=== PATIENT | male | born 1975 | race Caucasian/White ===

== ENCOUNTER 2020-05-07 17:35 | Inpatient (IN) | payer OTHER ==
[2020-05-07 19:29] VITALS: BMI 29.2
[2020-05-07] MEDS ORDERED: P-EPHED 60MG/TRIPROLIDI 2.5MG TABLET PO PRN (21:28)
[2020-05-07] MEDS ORDERED: IBUPROFEN 400 MG TABLET (FP) PO PRN (21:28)
[2020-05-07] MEDS ORDERED: hydrOXYzine PAMOATE 25 MG CAPSULE (FP) PO PRN (21:28)
[2020-05-07] MEDS ORDERED: LOPERAMIDE HCL 2 MG CAPSULE PO PRN (21:28)
[2020-05-07] MEDS ORDERED: MAGNESIUM HYDROX 2400MG/30ML ORAL SUSPENSION 30 ML CUP PO PRN (21:28)
[2020-05-07] MEDS ORDERED: MAG HYDROX/AL HYDROX/SIMETH 30 ML UNIT-DOSE CUP PO PRN (21:28)
[2020-05-07] MEDS ORDERED: ACETAMINOPHEN 325 MG TABLET (FP) PO PRN (21:28)
[2020-05-07] MEDS ORDERED: MAGNESIUM CITRATE 300 ML BOTTLE PO PRN (21:28)
[2020-05-07] MEDS ORDERED: guaiFENesin 200 MG/10 ML 10 ML UNIT-DOSE CUPS PO PRN (21:28)
[2020-05-08] MEDS: THIAMINE HCL 100 MG TABLET (FP) PO SCH ×2 (01:52→21:17)
[2020-05-08] MEDS: MELATONIN 5 MG TABLETS PO SCH ×2 (01:52→21:17)
[2020-05-08] MEDS: HYDROCHLOROTHIAZIDE 25 MG TABLET (FP) PO SCH (09:59)
[2020-05-08] MEDS: PRENATAL VITAMINS W/ FOLIC ACID TABLET (FP) PO SCH (09:59)
[2020-05-08] MEDS: ESCITALOPRAM OXALATE 10 MG TABLET PO SCH (09:59)
[2020-05-08 11:55] LABS: HEMATOCRIT 41.3 % (35.4-49); HEMOGLOBIN 14.2 GM/dL (11.7-16.9); MCH 33.1 pg (25.7-33.7); MCHC 34.4 g/dl (32.0-35.9); MEAN CELL VOLUME 96.2 fl (80-96); MEAN PLT VOLUME 8.7 fl (7.5-11.1); PLATELET COUNT 294 K/MM3 (134-434); RBC 4.29 M/mm3 (4.00-5.60); RDW 13.3 % (11.9-15.9); WHITE BLOOD COUNT 6.3 K/mm3 (4.0-10.0)
[2020-05-08 12:20] LABS: BLOOD UREA NITROGEN 15.4 mg/dL (7-18)
[2020-05-08 12:24] LABS: CALCIUM 9.3 mg/dL (8.5-10.1); CREATININE 0.9 mg/dL (0.55-1.3)
[2020-05-08 12:25] LABS: ALBUMIN 3.4 g/dl (3.4-5.0); BILIRUBIN,TOTAL 0.3 mg/dL (0.2-1); TOT PROT 7.6 g/dl (6.4-8.2)
[2020-05-08 16:21] LABS: URINE APPEARANCE CLEAR; URINE BILIRUBIN NEGATIVE (NEGATIVE); URINE COLOR YELLOW; URINE GLUCOSE (UA) NEGATIVE (NEGATIVE); URINE KETONE TRACE (NEGATIVE); URINE LEUK ESTERASE NEGATIVE (NEGATIVE); URINE NITRITE NEGATIVE (NEGATIVE); URINE PROTEIN NEGATIVE (NEGATIVE); URINE UROBILINOGEN 0.2 mg/dL (0.2-1.0)
[2020-05-08] MEDS: ATORVASTATIN CA 20 MG TABLET (FP) PO SCH (21:17)
[2020-05-08] MEDS: risperiDONE 2 MG TABLET PO SCH (21:17)
[2020-05-09] MEDS: ESCITALOPRAM OXALATE 10 MG TABLET PO SCH (10:08)
[2020-05-09] MEDS: HYDROCHLOROTHIAZIDE 25 MG TABLET (FP) PO SCH (10:08)
[2020-05-09] MEDS: PRENATAL VITAMINS W/ FOLIC ACID TABLET (FP) PO SCH (10:08)
[2020-05-09] MEDS: THIAMINE HCL 100 MG TABLET (FP) PO SCH (21:18)
[2020-05-09] MEDS: ATORVASTATIN CA 20 MG TABLET (FP) PO SCH (21:18)
[2020-05-09] MEDS: risperiDONE 2 MG TABLET PO SCH (21:18)
[2020-05-09] MEDS: MELATONIN 5 MG TABLETS PO SCH (21:18)
[2020-05-10] MEDS: PRENATAL VITAMINS W/ FOLIC ACID TABLET (FP) PO SCH (10:08)
[2020-05-10] MEDS: HYDROCHLOROTHIAZIDE 25 MG TABLET (FP) PO SCH (10:08)
[2020-05-10] MEDS: ESCITALOPRAM OXALATE 10 MG TABLET PO SCH (10:08)
[2020-05-10] MEDS ORDERED: PT OWN MED DRAWER 7, Y5N ONE ×2 (19:32→22:55)
[2020-05-10] MEDS: MELATONIN 5 MG TABLETS PO SCH (21:21)
[2020-05-10] MEDS: THIAMINE HCL 100 MG TABLET (FP) PO SCH (21:21)
[2020-05-10] MEDS: risperiDONE 2 MG TABLET PO SCH (21:22)
[2020-05-10] MEDS: ATORVASTATIN CA 20 MG TABLET (FP) PO SCH (21:22)
[2020-05-11] MEDS: PRENATAL VITAMINS W/ FOLIC ACID TABLET (FP) PO SCH (09:55)
[2020-05-11] MEDS: HYDROCHLOROTHIAZIDE 25 MG TABLET (FP) PO SCH (09:55)
[2020-05-11] MEDS: ESCITALOPRAM OXALATE 10 MG TABLET PO SCH (09:55)
[2020-05-11] MEDS: risperiDONE 2 MG TABLET PO SCH (21:19)
[2020-05-11] MEDS: THIAMINE HCL 100 MG TABLET (FP) PO SCH (21:19)
[2020-05-11] MEDS: ATORVASTATIN CA 20 MG TABLET (FP) PO SCH (21:19)
[2020-05-11] MEDS: MELATONIN 5 MG TABLETS PO SCH (21:19)
[2020-05-12] MEDS: ESCITALOPRAM OXALATE 10 MG TABLET PO SCH (10:03)
[2020-05-12] MEDS: HYDROCHLOROTHIAZIDE 25 MG TABLET (FP) PO SCH (10:03)
[2020-05-12] MEDS: PRENATAL VITAMINS W/ FOLIC ACID TABLET (FP) PO SCH (10:04)
[2020-05-12] MEDS: MELATONIN 5 MG TABLETS PO SCH (21:03)
[2020-05-12] MEDS: risperiDONE 2 MG TABLET PO SCH (21:03)
[2020-05-12] MEDS: ATORVASTATIN CA 20 MG TABLET (FP) PO SCH (21:03)
[2020-05-12] MEDS: THIAMINE HCL 100 MG TABLET (FP) PO SCH (21:03)
[2020-05-13] MEDS: HYDROCHLOROTHIAZIDE 25 MG TABLET (FP) PO SCH (09:58)
[2020-05-13] MEDS: PRENATAL VITAMINS W/ FOLIC ACID TABLET (FP) PO SCH (09:58)
[2020-05-13] MEDS: ESCITALOPRAM OXALATE 10 MG TABLET PO SCH (09:58)
[2020-05-13] MEDS: THIAMINE HCL 100 MG TABLET (FP) PO SCH (21:19)
[2020-05-13] MEDS: risperiDONE 2 MG TABLET PO SCH (21:19)
[2020-05-13] MEDS: MELATONIN 5 MG TABLETS PO SCH (21:19)
[2020-05-13] MEDS: ATORVASTATIN CA 20 MG TABLET (FP) PO SCH (21:19)
[2020-05-14] MEDS: PRENATAL VITAMINS W/ FOLIC ACID TABLET (FP) PO SCH (10:37)
[2020-05-14] MEDS: ESCITALOPRAM OXALATE 10 MG TABLET PO SCH (10:37)
[2020-05-14] MEDS: HYDROCHLOROTHIAZIDE 25 MG TABLET (FP) PO SCH (10:37)
[2020-05-14] MEDS ORDERED: PT OWN MED DRAWER 7, Y5N ONE (15:34)
[2020-05-14] MEDS: ATORVASTATIN CA 20 MG TABLET (FP) PO SCH (21:13)
[2020-05-14] MEDS: risperiDONE 2 MG TABLET PO SCH (21:13)
[2020-05-14] MEDS: MELATONIN 5 MG TABLETS PO SCH (21:13)
[2020-05-14] MEDS: THIAMINE HCL 100 MG TABLET (FP) PO SCH (21:13)
[2020-05-15] MEDS: ESCITALOPRAM OXALATE 10 MG TABLET PO SCH (09:48)
[2020-05-15] MEDS: HYDROCHLOROTHIAZIDE 25 MG TABLET (FP) PO SCH (09:48)
[2020-05-15] MEDS: PRENATAL VITAMINS W/ FOLIC ACID TABLET (FP) PO SCH (09:48)
[2020-05-15] MEDS: risperiDONE 2 MG TABLET PO SCH (21:24)
[2020-05-15] MEDS: MELATONIN 5 MG TABLETS PO SCH (21:24)
[2020-05-15] MEDS: THIAMINE HCL 100 MG TABLET (FP) PO SCH (21:24)
[2020-05-15] MEDS: ATORVASTATIN CA 20 MG TABLET (FP) PO SCH (21:24)
[2020-05-16] MEDS: PRENATAL VITAMINS W/ FOLIC ACID TABLET (FP) PO SCH (10:02)
[2020-05-16] MEDS: HYDROCHLOROTHIAZIDE 25 MG TABLET (FP) PO SCH (10:02)
[2020-05-16] MEDS: ESCITALOPRAM OXALATE 10 MG TABLET PO SCH (10:02)
[2020-05-16] MEDS: MELATONIN 5 MG TABLETS PO SCH (21:19)
[2020-05-16] MEDS: ATORVASTATIN CA 20 MG TABLET (FP) PO SCH (21:19)
[2020-05-16] MEDS: THIAMINE HCL 100 MG TABLET (FP) PO SCH (21:19)
[2020-05-16] MEDS: risperiDONE 2 MG TABLET PO SCH (21:19)
[2020-05-17] MEDS: PRENATAL VITAMINS W/ FOLIC ACID TABLET (FP) PO SCH (10:01)
[2020-05-17] MEDS: HYDROCHLOROTHIAZIDE 25 MG TABLET (FP) PO SCH (10:01)
[2020-05-17] MEDS: ESCITALOPRAM OXALATE 10 MG TABLET PO SCH (10:01)
[2020-05-17] MEDS: THIAMINE HCL 100 MG TABLET (FP) PO SCH (21:03)
[2020-05-17] MEDS: MELATONIN 5 MG TABLETS PO SCH (21:03)
[2020-05-17] MEDS: ATORVASTATIN CA 20 MG TABLET (FP) PO SCH (21:04)
[2020-05-17] MEDS: risperiDONE 2 MG TABLET PO SCH (21:04)
[2020-05-18] MEDS: ESCITALOPRAM OXALATE 10 MG TABLET PO SCH (09:44)
[2020-05-18] MEDS: HYDROCHLOROTHIAZIDE 25 MG TABLET (FP) PO SCH (09:44)
[2020-05-18] MEDS: PRENATAL VITAMINS W/ FOLIC ACID TABLET (FP) PO SCH (09:44)
[2020-05-18] MEDS: MELATONIN 5 MG TABLETS PO SCH (21:31)
[2020-05-18] MEDS: risperiDONE 2 MG TABLET PO SCH (21:31)
[2020-05-18] MEDS: ATORVASTATIN CA 20 MG TABLET (FP) PO SCH (21:31)
[2020-05-18] MEDS: THIAMINE HCL 100 MG TABLET (FP) PO SCH (21:31)
[2020-05-19] MEDS: ESCITALOPRAM OXALATE 10 MG TABLET PO SCH (09:51)
[2020-05-19] MEDS: HYDROCHLOROTHIAZIDE 25 MG TABLET (FP) PO SCH (09:51)
[2020-05-19] MEDS: PRENATAL VITAMINS W/ FOLIC ACID TABLET (FP) PO SCH (09:51)
[2020-05-19] MEDS: ATORVASTATIN CA 20 MG TABLET (FP) PO SCH (21:08)
[2020-05-19] MEDS: MELATONIN 5 MG TABLETS PO SCH (21:08)
[2020-05-19] MEDS: risperiDONE 2 MG TABLET PO SCH (21:08)
[2020-05-19] MEDS: THIAMINE HCL 100 MG TABLET (FP) PO SCH (21:08)
[2020-05-20] MEDS: ESCITALOPRAM OXALATE 10 MG TABLET PO SCH (09:28)
[2020-05-20] MEDS: HYDROCHLOROTHIAZIDE 25 MG TABLET (FP) PO SCH (09:28)
[2020-05-20] MEDS: PRENATAL VITAMINS W/ FOLIC ACID TABLET (FP) PO SCH (09:28)
[2020-05-20] MEDS: MELATONIN 5 MG TABLETS PO SCH (21:32)
[2020-05-20] MEDS: THIAMINE HCL 100 MG TABLET (FP) PO SCH (21:32)
[2020-05-20] MEDS: ATORVASTATIN CA 20 MG TABLET (FP) PO SCH (21:32)
[2020-05-20] MEDS: risperiDONE 2 MG TABLET PO SCH (21:32)
[2020-05-21] MEDS: PRENATAL VITAMINS W/ FOLIC ACID TABLET (FP) PO SCH (09:46)
[2020-05-21] MEDS: HYDROCHLOROTHIAZIDE 25 MG TABLET (FP) PO SCH (09:47)
[2020-05-21] MEDS: ESCITALOPRAM OXALATE 10 MG TABLET PO SCH (09:47)
[2020-05-21] MEDS: ATORVASTATIN CA 20 MG TABLET (FP) PO SCH (21:01)
[2020-05-21] MEDS: risperiDONE 2 MG TABLET PO SCH (21:01)
[2020-05-21] MEDS: THIAMINE HCL 100 MG TABLET (FP) PO SCH (21:02)
[2020-05-21] MEDS: MELATONIN 5 MG TABLETS PO SCH (21:02)
[2020-05-22] MEDS: HYDROCHLOROTHIAZIDE 25 MG TABLET (FP) PO SCH (09:30)
[2020-05-22] MEDS: ESCITALOPRAM OXALATE 10 MG TABLET PO SCH (09:30)
[2020-05-22] MEDS: PRENATAL VITAMINS W/ FOLIC ACID TABLET (FP) PO SCH (09:30)
[2020-05-22] MEDS: THIAMINE HCL 100 MG TABLET (FP) PO SCH (21:25)
[2020-05-22] MEDS: MELATONIN 5 MG TABLETS PO SCH (21:25)
[2020-05-22] MEDS: ATORVASTATIN CA 20 MG TABLET (FP) PO SCH (21:26)
[2020-05-22] MEDS: risperiDONE 2 MG TABLET PO SCH (21:26)
[2020-05-23] MEDS: ESCITALOPRAM OXALATE 10 MG TABLET PO SCH (09:46)
[2020-05-23] MEDS: HYDROCHLOROTHIAZIDE 25 MG TABLET (FP) PO SCH (09:46)
[2020-05-23] MEDS: PRENATAL VITAMINS W/ FOLIC ACID TABLET (FP) PO SCH (09:46)
[2020-05-23] MEDS: ATORVASTATIN CA 20 MG TABLET (FP) PO SCH (21:00)
[2020-05-23] MEDS: THIAMINE HCL 100 MG TABLET (FP) PO SCH (21:00)
[2020-05-23] MEDS: risperiDONE 2 MG TABLET PO SCH (21:00)
[2020-05-23] MEDS: MELATONIN 5 MG TABLETS PO SCH (21:00)
[2020-05-24] MEDS: ESCITALOPRAM OXALATE 10 MG TABLET PO SCH (10:13)
[2020-05-24] MEDS: HYDROCHLOROTHIAZIDE 25 MG TABLET (FP) PO SCH (10:13)
[2020-05-24] MEDS: PRENATAL VITAMINS W/ FOLIC ACID TABLET (FP) PO SCH (10:13)
[2020-05-24] MEDS: THIAMINE HCL 100 MG TABLET (FP) PO SCH (21:01)
[2020-05-24] MEDS: MELATONIN 5 MG TABLETS PO SCH (21:01)
[2020-05-24] MEDS: risperiDONE 2 MG TABLET PO SCH (21:01)
[2020-05-24] MEDS: ATORVASTATIN CA 20 MG TABLET (FP) PO SCH (21:01)
[2020-05-25] MEDS: PRENATAL VITAMINS W/ FOLIC ACID TABLET (FP) PO SCH (10:00)
[2020-05-25] MEDS: HYDROCHLOROTHIAZIDE 25 MG TABLET (FP) PO SCH (10:00)
[2020-05-25] MEDS: ESCITALOPRAM OXALATE 10 MG TABLET PO SCH (10:00)
[2020-05-25] MEDS: TOLNAFTATE 1% CREAM 15 GM TUBE TP SCH ×2 (14:51→21:25)
[2020-05-25] MEDS: THIAMINE HCL 100 MG TABLET (FP) PO SCH (21:24)
[2020-05-25] MEDS: ATORVASTATIN CA 20 MG TABLET (FP) PO SCH (21:24)
[2020-05-25] MEDS: MELATONIN 5 MG TABLETS PO SCH (21:24)
[2020-05-25] MEDS: risperiDONE 2 MG TABLET PO SCH (21:24)
[2020-05-26] MEDS: HYDROCHLOROTHIAZIDE 25 MG TABLET (FP) PO SCH (09:25)
[2020-05-26] MEDS: PRENATAL VITAMINS W/ FOLIC ACID TABLET (FP) PO SCH (09:25)
[2020-05-26] MEDS: ESCITALOPRAM OXALATE 10 MG TABLET PO SCH (09:25)
[2020-05-26] MEDS: TOLNAFTATE 1% CREAM 15 GM TUBE TP SCH ×2 (10:21→21:02)
[2020-05-26] MEDS: MELATONIN 5 MG TABLETS PO SCH (21:02)
[2020-05-26] MEDS: risperiDONE 2 MG TABLET PO SCH (21:02)
[2020-05-26] MEDS: ATORVASTATIN CA 20 MG TABLET (FP) PO SCH (21:02)
[2020-05-26] MEDS: THIAMINE HCL 100 MG TABLET (FP) PO SCH (21:02)
[2020-05-27] MEDS: PRENATAL VITAMINS W/ FOLIC ACID TABLET (FP) PO SCH (09:28)
[2020-05-27] MEDS: ESCITALOPRAM OXALATE 10 MG TABLET PO SCH (09:28)
[2020-05-27] MEDS: HYDROCHLOROTHIAZIDE 25 MG TABLET (FP) PO SCH (09:28)
[2020-05-27] MEDS: TOLNAFTATE 1% CREAM 15 GM TUBE TP SCH ×2 (09:29→21:33)
[2020-05-27] MEDS: risperiDONE 2 MG TABLET PO SCH (21:32)
[2020-05-27] MEDS: ATORVASTATIN CA 20 MG TABLET (FP) PO SCH (21:32)
[2020-05-27] MEDS: MELATONIN 5 MG TABLETS PO SCH (21:32)
[2020-05-27] MEDS: THIAMINE HCL 100 MG TABLET (FP) PO SCH (21:32)
[2020-05-28] MEDS: ESCITALOPRAM OXALATE 10 MG TABLET PO SCH (09:40)
[2020-05-28] MEDS: TOLNAFTATE 1% CREAM 15 GM TUBE TP SCH ×2 (09:40→21:35)
[2020-05-28] MEDS: PRENATAL VITAMINS W/ FOLIC ACID TABLET (FP) PO SCH (09:40)
[2020-05-28] MEDS: HYDROCHLOROTHIAZIDE 25 MG TABLET (FP) PO SCH (09:40)
[2020-05-28] MEDS: ATORVASTATIN CA 20 MG TABLET (FP) PO SCH (21:06)
[2020-05-28] MEDS: THIAMINE HCL 100 MG TABLET (FP) PO SCH (21:06)
[2020-05-28] MEDS: MELATONIN 5 MG TABLETS PO SCH (21:06)
[2020-05-28] MEDS: risperiDONE 2 MG TABLET PO SCH (21:06)
[2020-05-29] MEDS: ESCITALOPRAM OXALATE 10 MG TABLET PO SCH (09:31)
[2020-05-29] MEDS: HYDROCHLOROTHIAZIDE 25 MG TABLET (FP) PO SCH (09:31)
[2020-05-29] MEDS: TOLNAFTATE 1% CREAM 15 GM TUBE TP SCH ×2 (09:31→21:10)
[2020-05-29] MEDS: PRENATAL VITAMINS W/ FOLIC ACID TABLET (FP) PO SCH (09:31)
[2020-05-29] MEDS: risperiDONE 2 MG TABLET PO SCH (21:10)
[2020-05-29] MEDS: ATORVASTATIN CA 20 MG TABLET (FP) PO SCH (21:10)
[2020-05-29] MEDS: THIAMINE HCL 100 MG TABLET (FP) PO SCH (21:10)
[2020-05-29] MEDS: MELATONIN 5 MG TABLETS PO SCH (21:10)
[2020-05-30] MEDS: HYDROCHLOROTHIAZIDE 25 MG TABLET (FP) PO SCH (09:59)
[2020-05-30] MEDS: ESCITALOPRAM OXALATE 10 MG TABLET PO SCH (09:59)
[2020-05-30] MEDS: PRENATAL VITAMINS W/ FOLIC ACID TABLET (FP) PO SCH (09:59)
[2020-05-30] MEDS: TOLNAFTATE 1% CREAM 15 GM TUBE TP SCH ×2 (10:00→21:27)
[2020-05-30] MEDS: MELATONIN 5 MG TABLETS PO SCH (21:09)
[2020-05-30] MEDS: ATORVASTATIN CA 20 MG TABLET (FP) PO SCH (21:09)
[2020-05-30] MEDS: risperiDONE 2 MG TABLET PO SCH (21:09)
[2020-05-30] MEDS: THIAMINE HCL 100 MG TABLET (FP) PO SCH (21:09)
[2020-05-31] MEDS: HYDROCHLOROTHIAZIDE 25 MG TABLET (FP) PO SCH (09:38)
[2020-05-31] MEDS: PRENATAL VITAMINS W/ FOLIC ACID TABLET (FP) PO SCH (09:38)
[2020-05-31] MEDS: TOLNAFTATE 1% CREAM 15 GM TUBE TP SCH ×2 (09:38→21:26)
[2020-05-31] MEDS: ESCITALOPRAM OXALATE 10 MG TABLET PO SCH (09:38)
[2020-05-31] MEDS: ATORVASTATIN CA 20 MG TABLET (FP) PO SCH (21:23)
[2020-05-31] MEDS: risperiDONE 2 MG TABLET PO SCH (21:23)
[2020-05-31] MEDS: MELATONIN 5 MG TABLETS PO SCH (21:23)
[2020-05-31] MEDS: THIAMINE HCL 100 MG TABLET (FP) PO SCH (21:24)
[2020-06-01] MEDS: ESCITALOPRAM OXALATE 10 MG TABLET PO SCH (09:39)
[2020-06-01] MEDS: PRENATAL VITAMINS W/ FOLIC ACID TABLET (FP) PO SCH (09:39)
[2020-06-01] MEDS: HYDROCHLOROTHIAZIDE 25 MG TABLET (FP) PO SCH (09:39)
[2020-06-01] MEDS: TOLNAFTATE 1% CREAM 15 GM TUBE TP SCH ×2 (09:40→21:06)
[2020-06-01] MEDS: MELATONIN 5 MG TABLETS PO SCH (21:06)
[2020-06-01] MEDS: risperiDONE 2 MG TABLET PO SCH (21:06)
[2020-06-01] MEDS: ATORVASTATIN CA 20 MG TABLET (FP) PO SCH (21:06)
[2020-06-01] MEDS: THIAMINE HCL 100 MG TABLET (FP) PO SCH (21:06)
[2020-06-02] MEDS: TOLNAFTATE 1% CREAM 15 GM TUBE TP SCH ×2 (10:12→21:45)
[2020-06-02] MEDS: ESCITALOPRAM OXALATE 10 MG TABLET PO SCH (10:12)
[2020-06-02] MEDS: PRENATAL VITAMINS W/ FOLIC ACID TABLET (FP) PO SCH (10:12)
[2020-06-02] MEDS: HYDROCHLOROTHIAZIDE 25 MG TABLET (FP) PO SCH (10:12)
[2020-06-02] MEDS: THIAMINE HCL 100 MG TABLET (FP) PO SCH (21:44)
[2020-06-02] MEDS: risperiDONE 2 MG TABLET PO SCH (21:44)
[2020-06-02] MEDS: ATORVASTATIN CA 20 MG TABLET (FP) PO SCH (21:44)
[2020-06-02] MEDS: MELATONIN 5 MG TABLETS PO SCH (21:45)
[2020-06-03] MEDS: TOLNAFTATE 1% CREAM 15 GM TUBE TP SCH ×2 (09:24→21:12)
[2020-06-03] MEDS: PRENATAL VITAMINS W/ FOLIC ACID TABLET (FP) PO SCH (09:25)
[2020-06-03] MEDS: ESCITALOPRAM OXALATE 10 MG TABLET PO SCH (09:25)
[2020-06-03] MEDS: HYDROCHLOROTHIAZIDE 25 MG TABLET (FP) PO SCH (09:25)
[2020-06-03] MEDS: MELATONIN 5 MG TABLETS PO SCH (21:12)
[2020-06-03] MEDS: risperiDONE 2 MG TABLET PO SCH (21:12)
[2020-06-03] MEDS: ATORVASTATIN CA 20 MG TABLET (FP) PO SCH (21:12)
[2020-06-03] MEDS: THIAMINE HCL 100 MG TABLET (FP) PO SCH (21:12)
[2020-06-04 06:44] VITALS: TEMP 97.3
[2020-06-04] MEDS: HYDROCHLOROTHIAZIDE 25 MG TABLET (FP) PO SCH (09:42)
[2020-06-04] MEDS: TOLNAFTATE 1% CREAM 15 GM TUBE TP SCH ×2 (09:43→21:34)
[2020-06-04] MEDS: ESCITALOPRAM OXALATE 10 MG TABLET PO SCH (09:43)
[2020-06-04] MEDS: PRENATAL VITAMINS W/ FOLIC ACID TABLET (FP) PO SCH (09:43)
[2020-06-04] MEDS: ATORVASTATIN CA 20 MG TABLET (FP) PO SCH (21:33)
[2020-06-04] MEDS: THIAMINE HCL 100 MG TABLET (FP) PO SCH (21:33)
[2020-06-04] MEDS: MELATONIN 5 MG TABLETS PO SCH (21:33)
[2020-06-04] MEDS: risperiDONE 2 MG TABLET PO SCH (21:33)
[2020-06-05 08:55] VITALS: BP 129/80; PULSE 108
[2020-06-05] MEDS: TOLNAFTATE 1% CREAM 15 GM TUBE TP SCH (09:19)
[2020-06-05] MEDS: ESCITALOPRAM OXALATE 10 MG TABLET PO SCH (09:19)
[2020-06-05] MEDS: HYDROCHLOROTHIAZIDE 25 MG TABLET (FP) PO SCH (09:19)
[2020-06-05] MEDS: PRENATAL VITAMINS W/ FOLIC ACID TABLET (FP) PO SCH (09:19)
== END 2020-06-05 09:35 | disposition home or self-care (01) | DRG 772 ==
LOC: YASAS 17:35 → Y3E 23:27 → Y3W 05-12 19:55
PROVIDERS: ADMIT Allergy & Immunology; ATTEND Allergy & Immunology
PROC: HZ42ZZZ Group Counseling for Substance Abuse Treatment, Cognitive-Behavioral (ICD-10-PCS; principal; 2020-05-07)
DX: F10.20 Alcohol dependence, uncomplicated (principal); F19.24 Other psychoactive substance dependence with psychoactive substance-induced mood disorder; F32.9 Major depressive disorder, single episode, unspecified; F43.29 Adjustment disorder with other symptoms; I10 Essential (primary) hypertension; E78.5 Hyperlipidemia, unspecified; Z87.81 Personal history of (healed) traumatic fracture; Z87.828 Personal history of other (healed) physical injury and trauma; R76.11 Nonspecific reaction to tuberculin skin test without active tuberculosis; Y04.2XXA Assault by strike against or bumped into by another person, initial encounter; Y93.89 Activity, other specified; Y92.238 Other place in hospital as the place of occurrence of the external cause; Y99.8 Other external cause status
CPT/HCPCS: 36415; 71046-TC-FY; 80053; 81003; 82962; 85027; 86780; 93005; 93010; C9803; U0003